=== PATIENT | male | born 1965 | race Caucasian/White ===

== ENCOUNTER 2018-09-11 14:19 | Outpatient (CLI) | payer OTHER ==
--- NOTE | 2018-09-11 14:41 | RAD ---
2 VIEWS LEFT KNEE: Date: 09/11/18 PROVIDED CLINICAL HISTORY: Disability exam. FINDINGS: There is no evidence for fracture or other acute osseous abnormality. Alignment appears anatomic. Jamila nt spaces appear preserved. No significant knee joint capsular distention is evident. IMPRESSION: No evidence for an acute osseous abnormality or significant arthropathy. POS: OFF
--- NOTE | 2018-09-11 14:42 | RAD ---
LEFT HIP RADIOGRAPHS 2 VIEWS: DATE: 09/11/2018. PROVIDED CLINICAL HISTORY: Disability exam. FINDINGS: No comparisons. Screws are noted associated with the left acetabulum. There is a heterogeneously mi xed sclerotic and lucent appearance of the superior aspects of the left femoral head with associated flattening, compatible with changes of prior osteonecrosis and subchondral collapse. There is concen tric joint space narrowing and periarticular osteophyte formation. 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 POS: OFF
== END 2018-09-11 14:20 | disposition home or self-care (01) ==
LOC: BICRAD 14:19
PROVIDERS: ATTEND Internal Medicine
DX: Z02.71 Encounter for disability determination (principal); M16.12 Unilateral primary osteoarthritis, left hip

== ENCOUNTER 2020-10-12 17:58 | Emergency (ER) | payer BC ==
[2020-10-12] MEDS ORDERED: Naproxen 500 MG TAB ONE (18:51)
== END 2020-10-12 19:11 | disposition home or self-care (01) ==
LOC: ERS 17:58
DX: K04.7 Periapical abscess without sinus (principal); E78.5 Hyperlipidemia, unspecified; I10 Essential (primary) hypertension
CPT/HCPCS: 99283

== ENCOUNTER 2020-12-15 19:09 | Inpatient (IN) | payer MEDICARE, OTHER ==
[~2020-12-15 19:09] MED LIST: Iopamidol-370 76% 500 ML 1 ML ONE
[2020-12-15 20:31] LABS: Hemoglobin 16.8 g/dL (14.0-18.0); Mean Corpuscular HGB CONC 34.3 g/dL (32.0-36.0); Mean Corpuscular Hemoglobin 33.4 pg (27.0-31.0); Mean Corpuscular Volume 97.4 fL (78.0-98.0); Mean Platelet Volume 6.6 fL (7.4-10.4); Platelet Count 314 thou/uL (130-400); Red Blood Cell (RBC) Count 5.03 mill/uL (4.70-6.10); White Blood Cell (WBC) Count 24.1 thou/uL (4.8-10.8)
[2020-12-15] MEDS ORDERED: Morphine 4 MG/ML VIAL ONE (20:38)
[2020-12-15] MEDS ORDERED: Ketorolac Tromethamine 30 MG/ML VIAL ONE (20:39)
[2020-12-15] MEDS ORDERED: Ondansetron PF 4 MG/2 ML Vial ONE (20:39)
[2020-12-15 22:32] LABS: Lymphocytes 9 % (21-51); MDiff Complete? YES; Monocytes 18 % (0-10); Neutrophil 73 % (42-75); Platelet Morphology Comment Appears Adequate; RBC Morphology Normal
[2020-12-15 22:56] LABS: ALT (SGPT) 18 U/L (8-55); AST (SGOT) 16 U/L (5-34); Albumin 3.5 g/dL (3.5-5.0); Alkaline Phosphatase 83 U/L (40-110); Anion Gap 13 mmol/L (10-20); BUN (Urea Nitrogen) 8 mg/dL (8.4-25.7); Bilirubin, Total 1.1 mg/dL (0.2-1.2); Calc. Creatinine Clearance 0 mL/min (70-130); Calcium 8.6 mg/dL (7.8-10.44); Carbon Dioxide 19 mmol/L (22-29); Chloride 105 mmol/L (98-107); Globulin 3.1 g/dL (2.4-3.5); Glucose 95 mg/dL (70-105); Lipase Less than 4 U/L (8-78); Potassium 3.7 mmol/L (3.5-5.1); Protein, Total 6.6 g/dL (6.0-8.3); Sodium 133 mmol/L (136-145)
[2020-12-15] MEDS ORDERED: Vancomycin HCl 25 MG/ML Oral PO SCH (23:59)
[2020-12-16 00:55] LABS: Bacteria/HPF None Seen HPF (None Seen); Bilirubin Negative (Negative); Blood, Urine 3+ (Negative); Clarity Clear (Clear); Glucose, Urine (Dipstick) Normal (Negative); Ketone, Urine 10 mg/dL (Negative); Leukocyte Negative Leu/uL (Negative); Mucous/LPF Rare LPF (<2+); Nitrite Negative (Negative); Protein, Urine (Dipstick) Negative (Neg-Trace); RBC/HPF 21-50 HPF (0-3); Specific Gravity, Urine 1.034 (1.002-1.036); Squamous Epithelial 0-3 HPF (0-3); Urobilinogen Normal mg/dL (Less than 2); WBC/HPF 0-3 HPF (0-3); pH, Urine 5.5 (5.0-9.0)
[2020-12-16] MEDS: Sodium Chloride 0.9% 1,000 ML IV SCH ×5 (03:31→21:10)
[2020-12-16 03:49] VITALS: BMI 26.9
[2020-12-16] MEDS: Morphine 2 MG/ML VIAL SLOW IVP PRN ×4 (05:39→21:45)
[2020-12-16] MEDS ORDERED: Vancomycin HCl 25 MG/ML Oral PO SCH (06:00)
[2020-12-16] MEDS ORDERED: Calcium Carbonate 500 MG ChewTAB PO PRN (08:15)
[2020-12-16] MEDS ORDERED: Ondansetron ODT 4 MG TAB PO PRN (08:15)
[2020-12-16] MEDS ORDERED: Ondansetron PF 4 MG/2 ML Vial IVP PRN (08:15)
[2020-12-16] MEDS: metroNIDAZOLE 500 MG in Premix Bag 1 BAG IVPB SCH ×2 (09:20→16:57)
[2020-12-16] MEDS: Famotidine 20 MG TAB PO SCH ×2 (09:21→21:10)
[2020-12-16] MEDS: Saccharomyces boulardii 250 MG CAP PO SCH ×2 (09:21→21:10)
[2020-12-16] MEDS: Vancomycin HCl 25 MG/ML Oral PO SCH ×3 (09:21→21:11)
[2020-12-16] MEDS: Famotidine/PF 20 mg/2ml Vial SLOW IVP SCH ×2 (09:21→21:10)
[2020-12-16 09:33] LABS: Hemoglobin 13.8 g/dL (14.0-18.0); Mean Corpuscular HGB CONC 33.9 g/dL (32.0-36.0); Mean Corpuscular Hemoglobin 33.3 pg (27.0-31.0); Mean Corpuscular Volume 98.3 fL (78.0-98.0); Platelet Count 276 thou/uL (130-400); RBC Distribution Width 12.1 % (11.5-14.5); Red Blood Cell (RBC) Count 4.15 mill/uL (4.70-6.10); White Blood Cell (WBC) Count 21.2 thou/uL (4.8-10.8)
[2020-12-16] MEDS ORDERED: Lisinopril 5 MG TAB PO SCH (10:00)
[2020-12-16 10:01] LABS: Albumin 2.8 g/dL (3.5-5.0); Anion Gap 10 mmol/L (10-20); BUN (Urea Nitrogen) 7 mg/dL (8.4-25.7); BUN/Creatinine Ratio 8.43; Calc. Creatinine Clearance 134 mL/min (70-130); Calcium 7.5 mg/dL (7.8-10.44); Carbon Dioxide 19 mmol/L (22-29); Chloride 108 mmol/L (98-107); Glucose 117 mg/dL (70-105); Magnesium 1.8 mg/dL (1.6-2.6); Phosphorus 2.3 mg/dL (2.3-4.7); Potassium 3.5 mmol/L (3.5-5.1); Sodium 133 mmol/L (136-145)
[2020-12-16] MEDS: Acetaminophen 325 MG TAB PO PRN ×3 (10:10→18:51)
[2020-12-16] MEDS ORDERED: Aspirin 81 mg Enteric Coated Tablet PO SCH (10:15)
[2020-12-16] MEDS ORDERED: Atorvastatin Calcium 20 MG TAB PO SCH (10:15)
[2020-12-16] MEDS ORDERED: Tamsulosin HCl 0.4 MG CAP PO SCH (10:15)
[2020-12-16] MEDS ORDERED: Potassium Chloride 20 MEQ TAB PO SCH (10:30)
[2020-12-16 10:47] LABS: Band 12 % (5-11); Eosinophils 1 % (0-10); Lymphocytes 15 % (21-51); MDiff Complete? YES; Monocytes 9 % (0-10); Neutrophil 63 % (42-75); RBC Morphology Normal
[2020-12-16] MEDS ORDERED: Magnesium 2 GM/50 ML 2 GM in Premix Bag 1 BAG IVPB SCH (11:30)
[2020-12-16 11:40] LABS: SARS-CoV-2 PCR by NAA Not Detected (NotDetected)
[2020-12-16] MEDS: Potassium Chloride 20 MEQ TAB PO SCH (16:56)
[2020-12-17] MEDS: metroNIDAZOLE 500 MG in Premix Bag 1 BAG IVPB SCH ×3 (01:04→17:09)
[2020-12-17] MEDS: Vancomycin HCl 25 MG/ML Oral PO SCH ×4 (04:20→21:14)
[2020-12-17] MEDS: Acetaminophen 325 MG TAB PO PRN (04:26)
[2020-12-17] MEDS: Morphine 2 MG/ML VIAL SLOW IVP PRN ×4 (04:26→16:52)
[2020-12-17] MEDS: Sodium Chloride 0.9% 1,000 ML IV SCH ×3 (04:42→16:03)
[2020-12-17 06:25] LABS: Band 4 % (5-11); Hemoglobin 13.3 g/dL (14.0-18.0); Lymphocytes 5 % (21-51); MDiff Complete? YES; Mean Corpuscular HGB CONC 31.4 g/dL (32.0-36.0); Mean Corpuscular Hemoglobin 31.3 pg (27.0-31.0); Mean Corpuscular Volume 99.6 fL (78.0-98.0); Mean Platelet Volume 6.6 fL (7.4-10.4); Monocytes 11 % (0-10); Neutrophil 80 % (42-75); Platelet Count 269 thou/uL (130-400); Platelet Morphology Comment Appears Adequate; Red Blood Cell (RBC) Count 4.26 mill/uL (4.70-6.10); White Blood Cell (WBC) Count 20.6 thou/uL (4.8-10.8)
[2020-12-17 06:30] LABS: ALT (SGPT) 13 U/L (8-55); AST (SGOT) 13 U/L (5-34); Albumin 2.8 g/dL (3.5-5.0); Alkaline Phosphatase 57 U/L (40-110); Anion Gap 10 mmol/L (10-20); BUN (Urea Nitrogen) 4 mg/dL (8.4-25.7); Bilirubin, Total 0.5 mg/dL (0.2-1.2); Calc. Creatinine Clearance 145 mL/min (70-130); Calcium 7.7 mg/dL (7.8-10.44); Carbon Dioxide 18 mmol/L (22-29); Chloride 111 mmol/L (98-107); Globulin 2.4 g/dL (2.4-3.5); Glucose 93 mg/dL (70-105); Potassium 3.5 mmol/L (3.5-5.1); Protein, Total 5.2 g/dL (6.0-8.3); Sodium 135 mmol/L (136-145)
[2020-12-17] MEDS: Famotidine/PF 20 mg/2ml Vial SLOW IVP SCH ×2 (07:45→21:14)
[2020-12-17] MEDS: Lisinopril 5 MG TAB PO SCH (07:45)
[2020-12-17] MEDS: Aspirin 81 mg Enteric Coated Tablet PO SCH (07:49)
[2020-12-17] MEDS: Tamsulosin HCl 0.4 MG CAP PO SCH (07:50)
[2020-12-17] MEDS: Famotidine 20 MG TAB PO SCH ×2 (07:50→21:14)
[2020-12-17] MEDS: Saccharomyces boulardii 250 MG CAP PO SCH ×2 (07:50→21:14)
[2020-12-17] MEDS: Atorvastatin Calcium 20 MG TAB PO SCH (07:50)
[2020-12-17] MEDS: Ibuprofen 800 MG TAB PO PRN (16:51)
[2020-12-18] MEDS: Ibuprofen 800 MG TAB PO PRN ×3 (00:10→21:17)
[2020-12-18] MEDS: Morphine 2 MG/ML VIAL SLOW IVP PRN ×5 (00:11→20:05)
[2020-12-18] MEDS: Vancomycin HCl 25 MG/ML Oral PO SCH ×4 (03:28→21:16)
[2020-12-18] MEDS: metroNIDAZOLE 500 MG in Premix Bag 1 BAG IVPB SCH ×4 (03:28→17:07)
[2020-12-18] MEDS: Sodium Chloride 0.9% 1,000 ML IV SCH ×4 (03:29→21:18)
[2020-12-18] MEDS: Atorvastatin Calcium 20 MG TAB PO SCH (08:18)
[2020-12-18] MEDS: Aspirin 81 mg Enteric Coated Tablet PO SCH (08:18)
[2020-12-18] MEDS: Saccharomyces boulardii 250 MG CAP PO SCH ×2 (08:18→20:05)
[2020-12-18] MEDS: Tamsulosin HCl 0.4 MG CAP PO SCH (08:19)
[2020-12-18] MEDS: Famotidine/PF 20 mg/2ml Vial SLOW IVP SCH ×2 (08:19→20:06)
[2020-12-18] MEDS: Famotidine 20 MG TAB PO SCH ×2 (08:19→20:05)
[2020-12-18] MEDS: Lisinopril 5 MG TAB PO SCH (08:20)
[2020-12-18 11:40] LABS: #Basophils 0.1 thou/uL (0.0-0.2); #Eosinphils 0.3 thou/uL (0.0-0.7); #Lymphocytes 1.6 thou/uL (1.20-3.40); #Monocytes 1.4 thou/uL (0.11-0.59); #Neutrophils 13.4 thou/uL (1.40-6.50); %Basophils 0.6 % (0.0-1.0); %Eosinophils 1.6 % (0.0-10.0); %Lymphocytes 9.7 % (21.0-51.0); %Monocytes 8.1 % (0.0-10.0); Mean Corpuscular HGB CONC 33.4 g/dL (32.0-36.0); Mean Corpuscular Hemoglobin 32.1 pg (27.0-31.0); Mean Corpuscular Volume 96.1 fL (78.0-98.0); Mean Platelet Volume 6.5 fL (7.4-10.4); Platelet Count 266 thou/uL (130-400); RBC Distribution Width 11.9 % (11.5-14.5); Red Blood Cell (RBC) Count 4.36 mill/uL (4.70-6.10); White Blood Cell (WBC) Count 16.8 thou/uL (4.8-10.8)
[2020-12-18 12:08] LABS: Anion Gap 10 mmol/L (10-20); BUN (Urea Nitrogen) 5 mg/dL (8.4-25.7); Calc. Creatinine Clearance 164 mL/min (70-130); Calcium 7.7 mg/dL (7.8-10.44); Carbon Dioxide 18 mmol/L (22-29); Chloride 110 mmol/L (98-107); Glucose 88 mg/dL (70-105); Potassium 3.1 mmol/L (3.5-5.1); Sodium 135 mmol/L (136-145)
[2020-12-18 15:37] LABS: Troponin I Less than 0.010 ng/mL (< 0.028)
[2020-12-18 21:09] LABS: Troponin I Less than 0.010 ng/mL (< 0.028)
[2020-12-19] MEDS: Morphine 2 MG/ML VIAL SLOW IVP PRN ×4 (00:11→19:54)
[2020-12-19] MEDS: metroNIDAZOLE 500 MG in Premix Bag 1 BAG IVPB SCH ×3 (02:26→18:38)
[2020-12-19] MEDS: Vancomycin HCl 25 MG/ML Oral PO SCH ×4 (04:50→21:06)
[2020-12-19] MEDS: Ibuprofen 800 MG TAB PO PRN ×2 (04:51→15:21)
[2020-12-19 06:17] LABS: Mean Corpuscular Hemoglobin 32.6 pg (27.0-31.0); Mean Corpuscular Volume 95.9 fL (78.0-98.0); Mean Platelet Volume 6.8 fL (7.4-10.4); Platelet Count 287 thou/uL (130-400); RBC Distribution Width 11.9 % (11.5-14.5); Red Blood Cell (RBC) Count 4.28 mill/uL (4.70-6.10); White Blood Cell (WBC) Count 17.6 thou/uL (4.8-10.8)
[2020-12-19 06:31] LABS: Anion Gap 10 mmol/L (10-20); BUN (Urea Nitrogen) 5 mg/dL (8.4-25.7); Calc. Creatinine Clearance 155 mL/min (70-130); Calcium 7.8 mg/dL (7.8-10.44); Carbon Dioxide 18 mmol/L (22-29); Chloride 111 mmol/L (98-107); Glucose 81 mg/dL (70-105); Sodium 136 mmol/L (136-145)
[2020-12-19] MEDS: Sodium Chloride 0.9% 1,000 ML IV SCH ×4 (07:12→21:06)
[2020-12-19 08:41] LABS: Band 5 % (5-11); Lymphocytes 11 % (21-51); MDiff Complete? YES; Metamyelocyte 1 % (0-0); Monocytes 12 % (0-10); Neutrophil 71 % (42-75); RBC Morphology Normal
[2020-12-19] MEDS: Famotidine/PF 20 mg/2ml Vial SLOW IVP SCH ×2 (09:18→20:53)
[2020-12-19] MEDS: Lisinopril 5 MG TAB PO SCH (09:18)
[2020-12-19] MEDS: Saccharomyces boulardii 250 MG CAP PO SCH ×2 (09:18→19:54)
[2020-12-19] MEDS: Famotidine 20 MG TAB PO SCH ×2 (09:19→19:55)
[2020-12-19] MEDS: Atorvastatin Calcium 20 MG TAB PO SCH (09:19)
[2020-12-19] MEDS: Tamsulosin HCl 0.4 MG CAP PO SCH (09:19)
[2020-12-19] MEDS: Aspirin 81 mg Enteric Coated Tablet PO SCH (09:19)
[2020-12-19] MEDS ORDERED: ADENOSINE 60 MG/20 ML VIAL ONE (09:41)
[2020-12-19] MEDS: Potassium Chloride 20 MEQ TAB PO SCH ×2 (18:38→19:55)
[2020-12-20] MEDS: Morphine 2 MG/ML VIAL SLOW IVP PRN ×2 (00:56→05:04)
[2020-12-20] MEDS: metroNIDAZOLE 500 MG in Premix Bag 1 BAG IVPB SCH ×3 (03:01→17:29)
[2020-12-20] MEDS: Sodium Chloride 0.9% 1,000 ML IV SCH (05:02)
[2020-12-20] MEDS: Vancomycin HCl 25 MG/ML Oral PO SCH ×4 (05:03→21:20)
[2020-12-20 06:38] LABS: Hemoglobin 13.6 g/dL (14.0-18.0); Mean Corpuscular HGB CONC 34.6 g/dL (32.0-36.0); Mean Corpuscular Hemoglobin 33.3 pg (27.0-31.0); Mean Corpuscular Volume 96.4 fL (78.0-98.0); Mean Platelet Volume 6.8 fL (7.4-10.4); Platelet Count 306 thou/uL (130-400); RBC Distribution Width 12.1 % (11.5-14.5); Red Blood Cell (RBC) Count 4.09 mill/uL (4.70-6.10); White Blood Cell (WBC) Count 17.6 thou/uL (4.8-10.8)
[2020-12-20 06:52] LABS: Anion Gap 12 mmol/L (10-20); BUN (Urea Nitrogen) 5 mg/dL (8.4-25.7); Calc. Creatinine Clearance 164 mL/min (70-130); Carbon Dioxide 16 mmol/L (22-29); Chloride 113 mmol/L (98-107); Glucose 79 mg/dL (70-105); Potassium 3.4 mmol/L (3.5-5.1); Sodium 138 mmol/L (136-145)
[2020-12-20 08:15] LABS: Band 7 % (5-11); Eosinophils 1 % (0-10); Lymphocytes 18 % (21-51); MDiff Complete? YES; Monocytes 6 % (0-10); Neutrophil 68 % (42-75)
[2020-12-20] MEDS: Aspirin 81 mg Enteric Coated Tablet PO SCH (09:39)
[2020-12-20] MEDS: Atorvastatin Calcium 20 MG TAB PO SCH (09:40)
[2020-12-20] MEDS: Saccharomyces boulardii 250 MG CAP PO SCH ×2 (09:40→21:20)
[2020-12-20] MEDS: Famotidine 20 MG TAB PO SCH ×2 (09:40→21:20)
[2020-12-20] MEDS: Ibuprofen 800 MG TAB PO PRN (09:40)
[2020-12-20] MEDS: Lisinopril 5 MG TAB PO SCH (09:41)
[2020-12-20] MEDS ORDERED: Furosemide 40 MG/4 ML VIAL SLOW IVP SCH (11:00)
[2020-12-20] MEDS: Cholestyramine/Aspartame 4 gm Packet PO SCH ×3 (11:51→21:21)
[2020-12-20 13:14] LABS: SARS-CoV-2 NAA Rapid Test Not Detected (NotDetected)
[2020-12-20] MEDS ORDERED: Sodium Bicarbonate Tab 325 MG TAB PO SCH ×3 (13:23→21:00)
[2020-12-20] MEDS ORDERED: Potassium Chloride 20 MEQ TAB PO SCH (13:30)
[2020-12-20] MEDS: Famotidine/PF 20 mg/2ml Vial SLOW IVP SCH (15:39)
[2020-12-21] MEDS: metroNIDAZOLE 500 MG in Premix Bag 1 BAG IVPB SCH ×3 (01:27→17:25)
[2020-12-21] MEDS: Morphine 2 MG/ML VIAL SLOW IVP PRN ×3 (01:31→23:39)
[2020-12-21] MEDS: Vancomycin HCl 25 MG/ML Oral PO SCH ×4 (03:00→21:52)
[2020-12-21 05:42] LABS: Hemoglobin 14.4 g/dL (14.0-18.0); Mean Corpuscular HGB CONC 33.3 g/dL (32.0-36.0); Mean Corpuscular Hemoglobin 31.7 pg (27.0-31.0); Mean Corpuscular Volume 95.3 fL (78.0-98.0); Mean Platelet Volume 6.5 fL (7.4-10.4); Platelet Count 336 thou/uL (130-400); RBC Distribution Width 12.3 % (11.5-14.5); Red Blood Cell (RBC) Count 4.53 mill/uL (4.70-6.10); White Blood Cell (WBC) Count 17.3 thou/uL (4.8-10.8)
[2020-12-21 05:59] LABS: Anion Gap 11 mmol/L (10-20); BUN (Urea Nitrogen) 5 mg/dL (8.4-25.7); CRP (Inflammatory) 6.04 mg/dL (= or < 0.5); Calc. Creatinine Clearance 147 mL/min (70-130); Calcium 8.3 mg/dL (7.8-10.44); Carbon Dioxide 22 mmol/L (22-29); Chloride 108 mmol/L (98-107); Glucose 87 mg/dL (70-105); Magnesium 1.7 mg/dL (1.6-2.6); Potassium 3.2 mmol/L (3.5-5.1); Sodium 138 mmol/L (136-145)
[2020-12-21 06:57] LABS: Band 7 % (5-11); Eosinophils 6 % (0-10); Lymphocytes 12 % (21-51); MDiff Complete? YES; Metamyelocyte 1 % (0-0); Monocytes 11 % (0-10); Neutrophil 63 % (42-75)
[2020-12-21] MEDS ORDERED: Magnesium 2 GM/50 ML 2 GM in Premix Bag 1 BAG IVPB SCH (07:15)
[2020-12-21] MEDS ORDERED: Potassium Chloride 20 MEQ TAB PO SCH (07:15)
[2020-12-21] MEDS: Saccharomyces boulardii 250 MG CAP PO SCH ×2 (08:09→20:11)
[2020-12-21] MEDS: Lisinopril 5 MG TAB PO SCH (08:10)
[2020-12-21] MEDS: Atorvastatin Calcium 20 MG TAB PO SCH (08:11)
[2020-12-21] MEDS: Furosemide 40 MG/4 ML VIAL SLOW IVP SCH (08:11)
[2020-12-21] MEDS: Aspirin 81 mg Enteric Coated Tablet PO SCH (08:11)
[2020-12-21] MEDS: Famotidine 20 MG TAB PO SCH ×2 (08:11→20:11)
[2020-12-21] MEDS: Cholestyramine/Aspartame 4 gm Packet PO SCH ×3 (08:17→21:52)
[2020-12-21] MEDS: Potassium Chloride 20 MEQ TAB PO SCH ×2 (08:38→09:30)
[2020-12-21] MEDS ORDERED: Loratadine 5 MG/5 ML UDCUP PO PRN (15:54)
[2020-12-21] MEDS ORDERED: Loratadine 10 MG TAB PO PRN (17:25)
[2020-12-21] MEDS: Fluticasone Propionate Nasal Spray 16 gm Bottle NASAL SCH (21:55)
[2020-12-22] MEDS: metroNIDAZOLE 500 MG in Premix Bag 1 BAG IVPB SCH ×2 (01:52→10:11)
[2020-12-22] MEDS: Vancomycin HCl 25 MG/ML Oral PO SCH ×2 (05:14→10:11)
[2020-12-22 05:30] LABS: #Basophils 0.1 thou/uL (0.0-0.2); #Eosinphils 0.4 thou/uL (0.0-0.7); #Lymphocytes 2.7 thou/uL (1.20-3.40); #Monocytes 1.7 thou/uL (0.11-0.59); #Neutrophils 10.9 thou/uL (1.40-6.50); %Basophils 0.6 % (0.0-1.0); %Eosinophils 2.4 % (0.0-10.0); %Lymphocytes 17.1 % (21.0-51.0); %Monocytes 10.8 % (0.0-10.0); Hemoglobin 14.8 g/dL (14.0-18.0); Mean Corpuscular HGB CONC 33.7 g/dL (32.0-36.0); Mean Corpuscular Hemoglobin 32.3 pg (27.0-31.0); Mean Corpuscular Volume 95.8 fL (78.0-98.0); Mean Platelet Volume 6.5 fL (7.4-10.4); Platelet Count 371 thou/uL (130-400); RBC Distribution Width 12.5 % (11.5-14.5); White Blood Cell (WBC) Count 15.8 thou/uL (4.8-10.8)
[2020-12-22 05:54] LABS: Anion Gap 11 mmol/L (10-20); BUN (Urea Nitrogen) 6 mg/dL (8.4-25.7); Calc. Creatinine Clearance 143 mL/min (70-130); Calcium 8.6 mg/dL (7.8-10.44); Carbon Dioxide 22 mmol/L (22-29); Chloride 109 mmol/L (98-107); Glucose 95 mg/dL (70-105); Potassium 3.4 mmol/L (3.5-5.1); Sodium 139 mmol/L (136-145)
[2020-12-22] MEDS: Potassium Chloride 20 MEQ TAB PO SCH (10:05)
[2020-12-22] MEDS: Aspirin 81 mg Enteric Coated Tablet PO SCH (10:06)
[2020-12-22] MEDS: Famotidine 20 MG TAB PO SCH (10:06)
[2020-12-22] MEDS: Atorvastatin Calcium 20 MG TAB PO SCH (10:06)
[2020-12-22] MEDS: Fluticasone Propionate Nasal Spray 16 gm Bottle NASAL SCH (10:08)
[2020-12-22] MEDS: Lisinopril 5 MG TAB PO SCH (10:09)
[2020-12-22] MEDS: Saccharomyces boulardii 250 MG CAP PO SCH (10:09)
[2020-12-22] MEDS: Furosemide 40 MG/4 ML VIAL SLOW IVP SCH (10:09)
[2020-12-22] MEDS: Cholestyramine/Aspartame 4 gm Packet PO SCH (10:12)
[2020-12-22] MEDS ORDERED: HYDROcodone/Acetaminophen 5/325 mg Tablet PO PRN (11:00)
[2020-12-22] MEDS ORDERED: HYDROcodone/Acetaminophen 5/325 mg Tablet PO SCH (11:00)
[2020-12-22] MEDS ORDERED: Cyclobenzaprine 10 MG TAB PO PRN (11:02)
[2020-12-22] MEDS ORDERED: Cyclobenzaprine 10 MG TAB PO SCH (11:15)
[2020-12-22 12:29] LABS: Bacteria/HPF None Seen HPF (None Seen); Bilirubin Negative (Negative); Blood, Urine Negative (Negative); Clarity Clear (Clear); Glucose, Urine (Dipstick) Normal (Negative); Ketone, Urine Negative (Negative); Leukocyte Negative Leu/uL (Negative); Nitrite Negative (Negative); Protein, Urine (Dipstick) Negative (Neg-Trace); RBC/HPF 0-3 HPF (0-3); Specific Gravity, Urine 1.005 (1.002-1.036); Squamous Epithelial None Seen HPF (0-3); Urobilinogen Normal mg/dL (Less than 2); WBC/HPF 0-3 HPF (0-3); pH, Urine 5.5 (5.0-9.0)
[2020-12-22 12:45] LABS: Urine Culture Reflex No No
[2020-12-22 14:51] VITALS: BP 111/73; TEMP 98.2
[2020-12-23] MEDS ORDERED: Tamsulosin HCl 0.4 MG CAP PO SCH (09:00)
== END 2020-12-22 15:10 | disposition home or self-care (01) | DRG 872 ==
LOC: ERS 19:09 → ERHOLD 12-16 00:57 → SURG A 12-16 03:05 → OBSVTOIN 12-16 08:15
PROVIDERS: ADMIT Internal Medicine; ATTEND Family Medicine
DX: A41.89 Other specified sepsis (principal); A04.72 Enterocolitis due to Clostridium difficile, not specified as recurrent; E87.1 Hypo-osmolality and hyponatremia; E87.2 Acidosis; E87.6 Hypokalemia; E83.42 Hypomagnesemia; E78.5 Hyperlipidemia, unspecified; K80.20 Calculus of gallbladder without cholecystitis without obstruction; E87.70 Fluid overload, unspecified; E86.0 Dehydration; R65.20 Severe sepsis without septic shock; N20.0 Calculus of kidney; I10 Essential (primary) hypertension; Z20.822 Contact with and (suspected) exposure to COVID-19; N40.0 Benign prostatic hyperplasia without lower urinary tract symptoms; R07.9 Chest pain, unspecified; Z79.82 Long term (current) use of aspirin; Z79.899 Other long term (current) drug therapy; Z98.890 Other specified postprocedural states
CPT/HCPCS: 36415; 71045; 74018; 74177; 78452; 80048; 80053; 80069; 81001; 81003; 81015; 83605; 83690; 83735; 84484; 85025; 86140; 87040; 93005; 93010; 93017; 96374; 96375; 96376; A9500; G0378; J0153; J1885; J1940; J2270; J2405; J3475; Q9967; S0028; U0002; U0003; U0005

== ENCOUNTER 2021-06-05 13:59 | Inpatient (IN) | payer MEDICARE, MEDICAID ==
[2021-06-05] MEDS ORDERED: Nitroglycerin 2% Ointment 1 INCH/1 GM Packet ONE (14:27)
[2021-06-05 14:53] LABS: #Basophils 0.1 thou/uL (0.0-0.2); #Eosinphils 0.2 thou/uL (0.0-0.7); #Lymphocytes 2.8 thou/uL (1.20-3.40); #Monocytes 0.5 thou/uL (0.11-0.59); #Neutrophils 5.2 thou/uL (1.40-6.50); %Eosinophils 2.6 % (0.0-10.0); %Lymphocytes 31.9 % (21.0-51.0); %Monocytes 5.7 % (0.0-10.0); %Neutrophils 58.8 % (42.0-75.0); Hemoglobin 16.8 g/dL (14.0-18.0); Mean Corpuscular HGB CONC 32.5 g/dL (32.0-36.0); Mean Corpuscular Hemoglobin 30.6 pg (27.0-31.0); Mean Corpuscular Volume 94.2 fL (78.0-98.0); Mean Platelet Volume 6.8 fL (7.4-10.4); Platelet Count 291 thou/uL (130-400); RBC Distribution Width 12.5 % (11.5-14.5); Red Blood Cell (RBC) Count 5.51 mill/uL (4.70-6.10); White Blood Cell (WBC) Count 8.8 thou/uL (4.8-10.8)
[2021-06-05 15:07] LABS: ALT (SGPT) 30 U/L (8-55); AST (SGOT) 22 U/L (5-34); Albumin 4.3 g/dL (3.5-5.0); Alkaline Phosphatase 99 U/L (40-110); Anion Gap 14 mmol/L (10-20); BUN (Urea Nitrogen) 8 mg/dL (8.4-25.7); Bilirubin, Total 0.5 mg/dL (0.2-1.2); Calc. Creatinine Clearance 0 mL/min (70-130); Calcium 9.4 mg/dL (7.8-10.44); Carbon Dioxide 23 mmol/L (22-29); Chloride 107 mmol/L (98-107); Glucose 86 mg/dL (70-105); Potassium 4.2 mmol/L (3.5-5.1); Protein, Total 8.3 g/dL (6.0-8.3); Sodium 140 mmol/L (136-145)
[2021-06-05] MEDS ORDERED: Acetaminophen 325 MG TAB PO PRN (15:40)
[2021-06-05] MEDS ORDERED: Ondansetron PF 4 MG/2 ML Vial IVP PRN (15:40)
[2021-06-05] MEDS ORDERED: HYDROcodone/Acetaminophen 5/325 mg Tablet PO PRN (15:55)
[2021-06-05] MEDS ORDERED: Nitroglycerin 0.4 MG TAB (25 Tab Bottle) SL PRN (15:59)
[2021-06-05 18:48] LABS: Troponin I 0.475 ng/mL (< 0.028)
[2021-06-05 19:27] VITALS: BMI 28.5
[2021-06-05 20:08] LABS: Troponin I 0.638 ng/mL (< 0.028)
[2021-06-05] MEDS ORDERED: Enoxaparin Sodium 100 MG/ML SYRINGE SC SCH (21:00)
[2021-06-05] MEDS: Rosuvastatin 20 MG TAB PO SCH (21:46)
[2021-06-05] MEDS: Famotidine 20 MG TAB PO SCH (21:46)
[2021-06-05] MEDS: Carvedilol 3.125 MG TAB PO SCH (22:29)
[2021-06-05] MEDS ORDERED: diphenhydrAMINE 25 MG CAP PO SCH (22:45)
[2021-06-06 04:44] LABS: #Basophils 0.1 thou/uL (0.0-0.2); #Eosinphils 0.3 thou/uL (0.0-0.7); #Lymphocytes 2.7 thou/uL (1.20-3.40); #Monocytes 0.8 thou/uL (0.11-0.59); #Neutrophils 6.2 thou/uL (1.40-6.50); %Basophils 0.8 % (0.0-1.0); %Eosinophils 2.6 % (0.0-10.0); %Lymphocytes 26.8 % (21.0-51.0); %Monocytes 7.8 % (0.0-10.0); Hemoglobin 15.2 g/dL (14.0-18.0); Mean Corpuscular HGB CONC 31.5 g/dL (32.0-36.0); Mean Corpuscular Hemoglobin 30.4 pg (27.0-31.0); Mean Corpuscular Volume 96.6 fL (78.0-98.0); Mean Platelet Volume 7.1 fL (7.4-10.4); Platelet Count 278 thou/uL (130-400); RBC Distribution Width 12.7 % (11.5-14.5)
[2021-06-06 05:15] LABS: Anion Gap 12 mmol/L (10-20); BUN (Urea Nitrogen) 8 mg/dL (8.4-25.7); Calc. Creatinine Clearance 130 mL/min (70-130); Calcium 9.2 mg/dL (7.8-10.44); Carbon Dioxide 23 mmol/L (22-29); Cardiac Risk 6.3 (Less than 4.5); Chloride 107 mmol/L (98-107); Cholesterol 183 mg/dl (< 200 Desired); Glucose 92 mg/dL (70-105); HDL Cholesterol 29 mg/dL (>60 Neg Risk); Potassium 4.3 mmol/L (3.5-5.1); Sodium 138 mmol/L (136-145)
[2021-06-06 05:19] LABS: LDL Cholesterol, Calculated 127 mg/dL
[2021-06-06 05:33] LABS: Triglycerides 138 mg/dL (Less than 150)
[2021-06-06] MEDS ORDERED: Enoxaparin Sodium 30 MG/0.3 ML SYRINGE SC SCH (09:00)
[2021-06-06] MEDS: Tamsulosin HCl 0.4 MG CAP PO SCH (09:35)
[2021-06-06] MEDS: Carvedilol 3.125 MG TAB PO SCH ×2 (09:35→18:31)
[2021-06-06] MEDS: Famotidine 20 MG TAB PO SCH ×2 (09:36→21:01)
[2021-06-06] MEDS: Lisinopril 5 MG TAB PO SCH (09:36)
[2021-06-06 10:48] LABS: CKMB 4.4 ng/mL (0-6.6)
[2021-06-06 15:38] LABS: SARS-CoV-2 PCR by NAA Not Detected (NotDetected)
[2021-06-06] MEDS: Rosuvastatin 20 MG TAB PO SCH (21:01)
[2021-06-06] MEDS: Enoxaparin Sodium 100 MG/ML SYRINGE SC SCH (21:02)
[2021-06-06] MEDS: diphenhydrAMINE 12.5 MG/5 ML UDCUP PO SCH (21:06)
[2021-06-07] MEDS: Sodium Chloride 0.65% Nasal 44 ML BOT EA NARE PRN ×2 (00:26→17:56)
[2021-06-07 10:18] LABS: #Basophils 0.1 thou/uL (0.0-0.2); #Eosinphils 0.3 thou/uL (0.0-0.7); #Lymphocytes 2.7 thou/uL (1.20-3.40); #Monocytes 0.6 thou/uL (0.11-0.59); #Neutrophils 5.4 thou/uL (1.40-6.50); %Eosinophils 3.1 % (0.0-10.0); %Lymphocytes 29.6 % (21.0-51.0); %Monocytes 6.8 % (0.0-10.0); %Neutrophils 59.5 % (42.0-75.0); Hemoglobin 15.6 g/dL (14.0-18.0); Mean Corpuscular HGB CONC 33.7 g/dL (32.0-36.0); Mean Corpuscular Hemoglobin 31.7 pg (27.0-31.0); Mean Corpuscular Volume 94.1 fL (78.0-98.0); Platelet Count 271 thou/uL (130-400); RBC Distribution Width 12.4 % (11.5-14.5); Red Blood Cell (RBC) Count 4.91 mill/uL (4.70-6.10); White Blood Cell (WBC) Count 9.2 thou/uL (4.8-10.8)
[2021-06-07 10:31] LABS: Anion Gap 15 mmol/L (10-20); BUN (Urea Nitrogen) 8 mg/dL (8.4-25.7); Calc. Creatinine Clearance 130 mL/min (70-130); Calcium 9.1 mg/dL (7.8-10.44); Carbon Dioxide 19 mmol/L (22-29); Chloride 104 mmol/L (98-107); Glucose 143 mg/dL (70-105); Potassium 4.2 mmol/L (3.5-5.1); Sodium 134 mmol/L (136-145)
[2021-06-07] MEDS: Enoxaparin Sodium 100 MG/ML SYRINGE SC SCH ×2 (10:39→21:10)
[2021-06-07] MEDS: Azelastine 137 MCG/Spray 30 ML NS SCH (10:39)
[2021-06-07] MEDS: Carvedilol 3.125 MG TAB PO SCH ×2 (10:40→17:47)
[2021-06-07] MEDS: Tamsulosin HCl 0.4 MG CAP PO SCH (10:40)
[2021-06-07] MEDS: Lisinopril 5 MG TAB PO SCH (10:40)
[2021-06-07] MEDS: Famotidine 20 MG TAB PO SCH ×2 (10:40→21:10)
[2021-06-07] MEDS ORDERED: Communication Order-Pharmacy FS SCH (16:00)
[2021-06-07] MEDS ORDERED: Aspirin 81 mg Enteric Coated Tablet PO SCH (16:15)
[2021-06-07] MEDS: diphenhydrAMINE 12.5 MG/5 ML UDCUP PO SCH (21:09)
[2021-06-07] MEDS: Rosuvastatin 20 MG TAB PO SCH (21:10)
[2021-06-08] MEDS ORDERED: Sodium Chloride 0.9% 500 ML IV SCH ×2 (00:01→14:15)
[2021-06-08 05:01] LABS: #Basophils 0.1 thou/uL (0.0-0.2); #Eosinphils 0.4 thou/uL (0.0-0.7); #Lymphocytes 3.8 thou/uL (1.20-3.40); #Monocytes 0.9 thou/uL (0.11-0.59); #Neutrophils 4.6 thou/uL (1.40-6.50); %Eosinophils 4.3 % (0.0-10.0); %Lymphocytes 38.6 % (21.0-51.0); %Monocytes 9.1 % (0.0-10.0); %Neutrophils 47.1 % (42.0-75.0); Hemoglobin 15.5 g/dL (14.0-18.0); Mean Corpuscular HGB CONC 33.3 g/dL (32.0-36.0); Mean Corpuscular Hemoglobin 31.5 pg (27.0-31.0); Mean Corpuscular Volume 94.5 fL (78.0-98.0); Mean Platelet Volume 6.9 fL (7.4-10.4); Platelet Count 255 thou/uL (130-400); RBC Distribution Width 12.4 % (11.5-14.5); Red Blood Cell (RBC) Count 4.93 mill/uL (4.70-6.10); White Blood Cell (WBC) Count 9.9 thou/uL (4.8-10.8)
[2021-06-08 05:13] LABS: Anion Gap 13 mmol/L (10-20); BUN (Urea Nitrogen) 10 mg/dL (8.4-25.7); Calc. Creatinine Clearance 133 mL/min (70-130); Calcium 9.1 mg/dL (7.8-10.44); Carbon Dioxide 21 mmol/L (22-29); Chloride 107 mmol/L (98-107); Glucose 110 mg/dL (70-105); Potassium 3.8 mmol/L (3.5-5.1); Sodium 137 mmol/L (136-145)
[2021-06-08] MEDS: Carvedilol 3.125 MG TAB PO SCH ×2 (06:27→17:12)
[2021-06-08] MEDS: Aspirin 81 mg Enteric Coated Tablet PO SCH (06:27)
[2021-06-08] MEDS: Tamsulosin HCl 0.4 MG CAP PO SCH (06:38)
[2021-06-08] MEDS: Famotidine 20 MG TAB PO SCH ×2 (06:38→21:04)
[2021-06-08] MEDS: Azelastine 137 MCG/Spray 30 ML NS SCH (06:41)
[2021-06-08] MEDS ORDERED: Iopamidol 370 76% 100 ML VIAL ONE (09:41)
[2021-06-08] MEDS ORDERED: Iopamidol 370 76% 50 ML VIAL FS ONE (09:41)
[2021-06-08] MEDS ORDERED: Nitroglycerin 100MG/250ML BOT 250 ML ONE (11:42)
[2021-06-08] MEDS ORDERED: Verapamil 5 MG/2 ML VIAL ONE (11:42)
[2021-06-08] MEDS ORDERED: Heparin 10,000 UNITS/ 10 ML VIAL ONE (11:42)
[2021-06-08] MEDS: Lisinopril 5 MG TAB PO SCH (12:37)
[2021-06-08] MEDS ORDERED: Fentanyl 100 MCG/2 ML VIAL ONE (12:46)
[2021-06-08] MEDS ORDERED: Midazolam HCl 2 mg/2 ml Vial ONE (12:46)
[2021-06-08] MEDS ORDERED: TICAGRELOR 90 MG TABLET ONE (13:34)
[2021-06-08] MEDS ORDERED: Atorvastatin Calcium 20 MG TAB PO SCH (21:00)
[2021-06-08] MEDS: TICAGRELOR 90 MG TABLET PO SCH (21:04)
[2021-06-08] MEDS: Rosuvastatin 20 MG TAB PO SCH (21:05)
[2021-06-08] MEDS: diphenhydrAMINE 12.5 MG/5 ML UDCUP PO SCH (21:05)
[2021-06-08] MEDS: Sodium Chloride 0.65% Nasal 44 ML BOT EA NARE PRN (21:09)
[2021-06-09 04:29] LABS: #Basophils 0.1 thou/uL (0.0-0.2); #Eosinphils 0.3 thou/uL (0.0-0.7); #Lymphocytes 2.7 thou/uL (1.20-3.40); #Neutrophils 6.5 thou/uL (1.40-6.50); %Basophils 1.2 % (0.0-1.0); %Eosinophils 3.2 % (0.0-10.0); %Lymphocytes 25.1 % (21.0-51.0); %Neutrophils 61.5 % (42.0-75.0); Hemoglobin 15.6 g/dL (14.0-18.0); Mean Corpuscular HGB CONC 32.9 g/dL (32.0-36.0); Mean Corpuscular Hemoglobin 31.1 pg (27.0-31.0); Mean Corpuscular Volume 94.4 fL (78.0-98.0); Mean Platelet Volume 6.7 fL (7.4-10.4); Platelet Count 290 thou/uL (130-400); RBC Distribution Width 12.5 % (11.5-14.5); Red Blood Cell (RBC) Count 5.03 mill/uL (4.70-6.10); White Blood Cell (WBC) Count 10.6 thou/uL (4.8-10.8)
[2021-06-09 04:47] LABS: Anion Gap 12 mmol/L (10-20); BUN (Urea Nitrogen) 11 mg/dL (8.4-25.7); Calc. Creatinine Clearance 132 mL/min (70-130); Calcium 9.4 mg/dL (7.8-10.44); Carbon Dioxide 22 mmol/L (22-29); Chloride 106 mmol/L (98-107); Glucose 98 mg/dL (70-105); Potassium 4.1 mmol/L (3.5-5.1); Sodium 136 mmol/L (136-145)
[2021-06-09] MEDS: TICAGRELOR 90 MG TABLET PO SCH (08:59)
[2021-06-09] MEDS: Famotidine 20 MG TAB PO SCH (08:59)
[2021-06-09] MEDS: Aspirin 81 mg Enteric Coated Tablet PO SCH (08:59)
[2021-06-09] MEDS: Lisinopril 5 MG TAB PO SCH (08:59)
[2021-06-09] MEDS: Tamsulosin HCl 0.4 MG CAP PO SCH (09:00)
[2021-06-09] MEDS: Azelastine 137 MCG/Spray 30 ML NS SCH (09:00)
[2021-06-09] MEDS ORDERED: Aspirin Chewable 81 MG TAB PO SCH (09:00)
[2021-06-09] MEDS: Carvedilol 3.125 MG TAB PO SCH (09:00)
[2021-06-09 11:41] VITALS: TEMP 97.6
[2021-06-09 12:44] VITALS: BP 118/73
== END 2021-06-09 12:55 | disposition home or self-care (01) | DRG 247 ==
LOC: ERS 13:59 → ERHOLD 14:50 → 2NO 18:25
PROVIDERS: ADMIT Internal Medicine; ATTEND Hospitalist
PROC: 027034Z Dilation of Coronary Artery, One Artery with Drug-eluting Intraluminal Device, Percutaneous Approach (ICD-10-PCS; principal; 2021-06-08)
PROC: 4A023N7 Measurement of Cardiac Sampling and Pressure, Left Heart, Percutaneous Approach (ICD-10-PCS; 2021-06-08)
PROC: B2151ZZ Fluoroscopy of Left Heart using Low Osmolar Contrast (ICD-10-PCS; 2021-06-08)
PROC: B2111ZZ Fluoroscopy of Multiple Coronary Arteries using Low Osmolar Contrast (ICD-10-PCS; 2021-06-08)
DX: I21.4 Non-ST elevation (NSTEMI) myocardial infarction (principal); L76.22 Postprocedural hemorrhage of skin and subcutaneous tissue following other procedure; Z20.822 Contact with and (suspected) exposure to COVID-19; Y84.0 Cardiac catheterization as the cause of abnormal reaction of the patient, or of later complication, without mention of misadventure at the time of the procedure; I21.A1 Myocardial infarction type 2; I10 Essential (primary) hypertension; E78.5 Hyperlipidemia, unspecified; I25.10 Atherosclerotic heart disease of native coronary artery without angina pectoris; I08.1 Rheumatic disorders of both mitral and tricuspid valves; Z96.642 Presence of left artificial hip joint; Z79.899 Other long term (current) drug therapy; Z79.82 Long term (current) use of aspirin; Z98.890 Other specified postprocedural states; Z79.51 Long term (current) use of inhaled steroids; Z82.49 Family history of ischemic heart disease and other diseases of the circulatory system
CPT/HCPCS: 36415; 80048; 80053; 80061; 82553; 84484; 85025; 85347; 92928; 93005; 93010; 93306; 93458; 93798; 99152; 99153; C1725; C1769; C1874; C9600; J1644; J1650; J2250; J3010; J7030; Q0163; Q9967; U0003; U0005

== ENCOUNTER 2022-02-01 09:47 | Emergency (ER) | payer OTHER | END 2022-02-01 12:07 | disposition home or self-care (01) | LOC: ERS 09:47 | DX: L03.111 Cellulitis of right axilla (principal); L01.00 Impetigo, unspecified; I10 Essential (primary) hypertension; E78.5 Hyperlipidemia, unspecified | CPT/HCPCS: 99283 ==